=== PATIENT | female | born 1975 | race Caucasian/White ===

== ENCOUNTER 2020-09-12 10:26 | Emergency (ER) | payer OTHER ==
[~2020-09-12] VITALS: Ht 147.3 cm; Wt 47.6 kg
[2020-09-12 10:34] VITALS: BP_SYST 136
[2020-09-12] MEDS ORDERED: KETOROLAC TROMETHAMINE 60 MG/2 ML VIAL IM ONE (11:00)
[2020-09-12] MEDS ORDERED: CYCLOBENZAPRINE HCL 10 MG TABLET (FLEXERIL) PO ONE (11:00)
[2020-09-12] MEDS ORDERED: ACETAMINOPHEN 500 MG TABLET PO ONE (11:00)
[2020-09-12] MEDS ORDERED: ACET-2634 PO (11:49)
[2020-09-12] MEDS ORDERED: IBUP-1969 PO (11:49)
[2020-09-12] MEDS ORDERED: LIDO1ADH5 TP (11:49)
[2020-09-12 11:55] VITALS: BP_SYST 128
== END 2020-09-12 11:56 | disposition home or self-care (01) ==
LOC: SED 10:26
DX: S39.82XA Other specified injuries of lower back, initial encounter (principal); W17.89XA Other fall from one level to another, initial encounter; Y93.89 Activity, other specified; Y92.89 Other specified places as the place of occurrence of the external cause; Y99.8 Other external cause status
CPT/HCPCS: 81025; 96372; 99283; J1885